=== PATIENT | male | born 1960 | race American Indian/Alaskan Native ===

== ENCOUNTER 2020-01-09 20:18 | Emergency (ER) | payer SELFPAY ==
[2020-01-09 20:26] VITALS: BP 116/95
--- NOTE | 2020-01-09 21:00 | Emergency Department Report ---
ED ENT HPI - General Chief complaint: Dental/Oral Stated complaint: ABSCESS Time Seen by Provider: 01/09/20 20:56 Source: patient Mode of arrival: Ambulatory Limitations: No Limitations - History of Present Illness Initial comments: pt is a 59 yo male who presents to the ED with c/o right upper dental pain that began a week ago. he states he began having right sided facial swelling two days ago. he states that a cap fell off one of his teeth. he denies any fever, n/v/d, chills. no PMHx. no allergies to meds. - Related Data Previous Rx's Medication Instructions Recorded Last Taken Type Ibuprofen [Motrin 600 MG tab] 600 mg PO Q8H PRN #14 tablet 01/09/20 Unknown Rx Penicillin Vk [Veetids TAB] 500 mg PO QID 7 Days #56 tablet 01/09/20 Unknown Rx ED Dental HPI - General Chief complaint: Dental/Oral Stated complaint: ABSCESS Time Seen by Provider: 01/09/20 20:56 Source: patient Mode of arrival: Ambulatory Limitations: No Limitations - Related Data Previous Rx's Medication Instructions Recorded Last Taken Type Ibuprofen [Motrin 600 MG tab] 600 mg PO Q8H PRN #14 tablet 01/09/20 Unknown Rx Penicillin Vk [Veetids TAB] 500 mg PO QID 7 Days #56 tablet 01/09/20 Unknown Rx ED Review of Systems ROS: Stated complaint: ABSCESS Other details as noted in HPI Comment: All other systems reviewed and negative ED Past Medical Hx - Past Medical History Previous Medical History?: No - Surgical History Past Surgical History?: No - Social History Smoking Status: Current Every Day Smoker Substance Use Type: Alcohol, Marijuana - Medications Home Medications: Home Medications Medication Instructions Recorded Confirmed Last Taken Type Ibuprofen [Motrin 600 MG tab] 600 mg PO Q8H PRN #14 tablet 01/09/20 Unknown Rx Penicillin Vk [Veetids TAB] 500 mg PO QID 7 Days #56 tablet 01/09/20 Unknown Rx ED Physical Exam - General Limitations: No Limitations General appearance: alert, in no apparent distress - Head Head exam: Present: atraumatic, normocephalic - Eye Eye exam: Present: normal appearance - ENT ENT exam: Present: normal orophraynx, mucous membranes moist, other (very poor dentition, several cracked/missing teeth, there is a missing tooth in the left upper frontal region, there is a 1 cm area of induration and fluctuance present on the gumline, there is associated edema present above the left upper lip, uvula is midline, no uvular edema or deviation, no tongue elevation, no trismus, no muffled voice) - Respiratory Respiratory exam: Present: normal lung sounds bilaterally. Absent: respiratory distress, wheezes, rales, rhonchi, stridor, chest wall tenderness, accessory muscle use, decreased breath sounds, prolonged expiratory - Cardiovascular Cardiovascular Exam: Present: regular rate, normal rhythm, normal heart sounds. Absent: systolic murmur, diastolic murmur, rubs, gallop - Neurological Exam Neurological exam: Present: alert, oriented X3 - Psychiatric Psychiatric exam: Present: normal affect, normal mood - Skin Skin exam: Present: warm, dry, intact ED Course Vital Signs 01/09/20 20:25 Temperature 98.3 F Pulse Rate 79 Respiratory 20 Rate Blood Pressure 116/95 O2 Sat by Pulse 95 Oximetry ED Medical Decision Making - Medical Decision Making pt is a 59 yo male who presents to the ED with c/o right upper dental pain that began a week ago. he states he began having right sided facial swelling two days ago. he states that a cap fell off one of his teeth. he denies any fever, n/v/d, chills. no PMHx. no allergies to meds. Vitals are normal. On exam: very poor dentition, several cracked/missing teeth, there is a missing tooth in the left upper frontal region, there is a 1 cm area of induration and fluctuance present on the gumline, there is associated edema present above the left upper lip, uvula is midline, no uvular edema or deviation, no tongue elevation, no trismus, no muffled voice. Examination consistent with dental abscess. Patient given prescription for penicillin VK and ibuprofen. advised pt please take medication as prescribed. please follow up with a dentist. it is very important you follow up with a dentist. return to the emergency room for any new or worsening symptoms. Critical care attestation.: If time is entered above; I have spent that time in minutes in the direct care of this critically ill patient, excluding procedure time. ED Disposition Clinical Impression: Dental abscess, Dental caries Disposition: TO HOME OR SELFCARE Is pt being admited?: No Does the pt Need Aspirin: No Condition: Stable Instructions: Dental Abscess (ED), Dental Caries (ED) Additional Instructions: please take medication as prescribed. please follow up with a dentist. it is very important you follow up with a dentist. return to the emergency room for any new or worsening symptoms. Prescriptions: Ibuprofen [Motrin 600 MG tab] 600 mg PO Q8H PRN #14 tablet PRN Reason: Pain Penicillin Vk [Veetids TAB] 500 mg PO QID 7 Days #56 tablet Referrals: [facility] [Outside] - 3-5 Days [facility] [Outside] - 3-5 Days Time of Disposition: 21:00 Print Language: TUNISIAN
== END 2020-01-09 21:10 | disposition home or self-care (01) ==
LOC: ED 20:18
DX: K04.7 Periapical abscess without sinus (principal); K02.9 Dental caries, unspecified; F17.200 Nicotine dependence, unspecified, uncomplicated; F12.10 Cannabis abuse, uncomplicated; Z79.899 Other long term (current) drug therapy
CPT/HCPCS: 99282